=== PATIENT | male | born 2000 | race African-American/Black ===

== ENCOUNTER 2024-05-01 14:40 | Observation (INO) | payer OTHER ==
[2024-05-01 15:18] LABS: #Basophils 0.05 10x3/uL (0.0-0.2); #Eosinophils Less than 0.03 10x3/uL (0.0-0.5); #Monocytes 0.71 10x3/uL (0.0-1.1); %Basophils 0.7 % (0.0-2.0); %Eosinophils 0.1 % (0.0-6.0); %Lymphocytes 13.9 % (18.0-47.0); %Monocytes 10.2 % (0.0-10.0); %Neutrophils 74.8 % (40.0-75.0); Hematocrit 43.1 % (38.8-50.0); Hemoglobin 14.4 g/dL (13.5-17.5); Mean Corpuscular HGB CONC 33.4 g/dL (32.0-36.0); Mean Corpuscular Hemoglobin 27.9 pg (27.0-33.0); Mean Corpuscular Volume 83.5 fL (81.2-95.1); Mean Platelet Volume 10.3 fL (7.4-10.4); Platelet Count 252 10x3/uL (150-450); RBC Distribution Width 12.4 % (11.5-14.5); Red Blood Cell (RBC) Count 5.16 10x6/uL (4.32-5.72); White Blood Cell (WBC) Count 6.96 10x3/uL (3.5-10.5)
[2024-05-01] MEDS ORDERED: Ketorolac Tromethamine 30 MG (1 mL) VIAL ONE ×2 (15:24→15:25)
[2024-05-01 15:39] LABS: ALT (SGPT) 23 U/L (Less than 45); AST (SGOT) 28 U/L (11-34); Albumin 3.9 g/dL (3.1-4.5); Alkaline Phosphatase 67 U/L (40-110); Anion Gap 15 mmol/L (10-20); BUN (Urea Nitrogen) 9 mg/dL (8.9-20.6); Bilirubin, Total 0.8 mg/dL (0.3-1.2); Calc. Creatinine Clearance 0 mL/min (70-130); Calcium 8.7 mg/dL (7.8-10.44); Carbon Dioxide 21 mmol/L (22-29); Chloride 101 mmol/L (98-107); Estimated GFR 72; Globulin 3.3 g/dL (2.4-3.5); Glucose 244 mg/dL (70-105); Magnesium 1.7 mg/dL (1.6-2.6); Potassium 3.9 mmol/L (3.5-5.1); Protein, Total 7.2 g/dL (6.0-8.3); Sodium 133 mmol/L (136-145)
[2024-05-01] MEDS ORDERED: Acetaminophen 500 MG TAB ONE (16:46)
[2024-05-01 17:03] LABS: Bilirubin Neg (Negative); Blood, Urine Negative (Negative); Clarity Clear (Clear); Glucose, Urine (Dipstick) 100 mg/dL (Negative); Ketone, Urine Negative (Negative); Leukocyte Negative (Negative); Nitrite Negative (Negative); Protein, Urine (Dipstick) 30 mg/dl (Neg-Trace); pH, Urine 6.5 (5.0-9.0)
[2024-05-01] MEDS ORDERED: Senokot S 8.6-50 MG TAB PO PRN (17:37)
[2024-05-01] MEDS ORDERED: Calcium Carbonate 500 MG ChewTAB PO PRN (17:37)
[2024-05-01] MEDS ORDERED: Ondansetron PF 4 MG/2 ML Vial IVP PRN (17:37)
[2024-05-01] MEDS ORDERED: Acetaminophen 325 MG TAB PO PRN (17:37)
[2024-05-01] MEDS ORDERED: Dextrose 50% Abboject 50 ML SYRINGE SLOW IVP PRN (17:51)
[2024-05-01] MEDS ORDERED: Insulin Lispro 100 UNIT/ML 10 ML VIAL SC PRN ×2 (17:51)
[2024-05-01] MEDS ORDERED: Dextrose 5% in Water 1,000 ML IV PRN (17:51)
[2024-05-01] MEDS ORDERED: Glucagon 1 MG/ML KIT IM PRN (17:51)
[2024-05-01] MEDS ORDERED: Albuterol 200 PUFF (6.7GM INHALER) INH PRN (18:00)
[2024-05-01 18:12] LABS: Bacteria/HPF None Seen HPF (None Seen); CAUTI Indications for Culture Fever or rigors; RBC/HPF None Seen HPF (0-3); Squamous Epithelial None Seen HPF (0-3); Urine Culture Reflex No No; WBC/HPF None Seen HPF (0-3)
[2024-05-01 21:43] VITALS: BMI 32.1
[2024-05-01] MEDS: Sodium Chloride 0.9% 1,000 ML IV SCH (21:49)
[2024-05-01] MEDS: Oseltamivir 75 MG CAP PO SCH (22:03)
[2024-05-01] MEDS: Benzonatate 100 MG CAP PO SCH (22:05)
[2024-05-01] MEDS: Indomethacin 25 mg Capsule PO SCH (23:05)
[2024-05-01] MEDS: Colchicine 0.6 MG TAB PO SCH (23:05)
[2024-05-01] MEDS: Guaifenesin DM 100-10/5 ML UDCUP PO PRN (23:06)
[2024-05-02 04:13] LABS: #Basophils 0.04 10x3/uL (0.0-0.2); #Eosinophils 0.05 10x3/uL (0.0-0.5); #Monocytes 0.72 10x3/uL (0.0-1.1); #Neutrophils 4.61 10x3/uL (1.5-8.4); %Basophils 0.6 % (0.0-2.0); %Eosinophils 0.7 % (0.0-6.0); %Lymphocytes 21.2 % (18.0-47.0); %Monocytes 10.4 % (0.0-10.0); Hematocrit 43.1 % (38.8-50.0); Hemoglobin 14.3 g/dL (13.5-17.5); Mean Corpuscular HGB CONC 33.2 g/dL (32.0-36.0); Mean Corpuscular Hemoglobin 27.2 pg (27.0-33.0); Mean Corpuscular Volume 81.9 fL (81.2-95.1); Mean Platelet Volume 10.2 fL (7.4-10.4); Platelet Count 236 10x3/uL (150-450); RBC Distribution Width 12.3 % (11.5-14.5); Red Blood Cell (RBC) Count 5.26 10x6/uL (4.32-5.72); White Blood Cell (WBC) Count 6.89 10x3/uL (3.5-10.5)
[2024-05-02 04:29] LABS: ALT (SGPT) 18 U/L (Less than 45); AST (SGOT) 26 U/L (11-34); Albumin 3.6 g/dL (3.1-4.5); Alkaline Phosphatase 62 U/L (40-110); Anion Gap 11 mmol/L (10-20); BUN (Urea Nitrogen) 7 mg/dL (8.9-20.6); Bilirubin, Total 1.2 mg/dL (0.3-1.2); Calc. Creatinine Clearance 159 mL/min (70-130); Calcium 8.5 mg/dL (7.8-10.44); Carbon Dioxide 24 mmol/L (22-29); Chloride 108 mmol/L (98-107); Estimated GFR 102; Globulin 3.3 g/dL (2.4-3.5); Glucose 123 mg/dL (70-105); Protein, Total 6.9 g/dL (6.0-8.3); Sodium 139 mmol/L (136-145)
[2024-05-02 08:32] VITALS: BP 123/66; TEMP 98.2
[2024-05-02] MEDS: Oseltamivir 75 MG CAP PO SCH (08:56)
[2024-05-02] MEDS: Enoxaparin 40 MG (0.4 mL) SYRINGE SC SCH (08:56)
[2024-05-02] MEDS: Benzonatate 100 MG CAP PO SCH (08:56)
[2024-05-02] MEDS: Pantoprazole 40 MG DR.TAB PO SCH (08:56)
[2024-05-02 12:35] LABS: Hemoglobin A1c 4.6 % (4.0-6.0)
== END 2024-05-02 11:57 | disposition home or self-care (01) ==
LOC: CSHERS 14:40 → SUATTDRO 14:40 → CSHERHOLD 17:36 → CSHTELE 21:18
PROVIDERS: ADMIT Internal Medicine; ATTEND Internal Medicine
DX: A41.89 Other specified sepsis (principal); J10.1 Influenza due to other identified influenza virus with other respiratory manifestations; R07.81 Pleurodynia; N17.9 Acute kidney failure, unspecified; R73.9 Hyperglycemia, unspecified; I31.9 Disease of pericardium, unspecified; Z79.899 Other long term (current) drug therapy
CPT/HCPCS: 36415; 36416; 71045; 80053; 81001; 82550; 83036; 83605; 83735; 84145; 85025; 86140; 87040; 87428; 93005; 93010; 94760; 96361; 96372; 96374; G0378; J1650; J1885; J7030